=== PATIENT | female | born 1955 | race Caucasian/White ===

== ENCOUNTER 2016-10-01 00:45 | Emergency (ER) | payer OTHER | END 2016-10-01 01:36 | disposition home or self-care (01) | LOC: D.ER 00:45 | DX: S59.901A Unspecified injury of right elbow, initial encounter (principal); W19.XXXA Unspecified fall, initial encounter; Y93.89 Activity, other specified; Y92.89 Other specified places as the place of occurrence of the external cause; S89.92XA Unspecified injury of left lower leg, initial encounter; E11.9 Type 2 diabetes mellitus without complications; Z79.4 Long term (current) use of insulin ==

== ENCOUNTER → 2017-03-06 08:08 | Outpatient (CLI) | payer MEDICAID ==
--- NOTE | 2017-03-16 09:10 | EMG ---
PATIENT:HANS CASTELLANOS DATE OF SERVICE: 03/06/17 MEDICAL RECORD: [id number] DATE OF : 57 LOCATION: [facility] ADMISSION DATE: REFERRING PHYSICIAN: ALISTAIR MARCANO INTERPRETING PHYSICIAN: NEFTALY COTTO MD DATE OF SERVICE: 03/06/[address] Marcano as an outpatient. ELECTROMYOGRAPHIC DATA: Electromyographic examination is limited to both lower extremities. In the right lower extremity, right peroneal motor stimulation elicits a compound motor action potential with a distal latency of 4.4 milliseconds, peak amplitude of only 160 microvolts and calculated conduction velocity of 44 meters per second. Right tibial motor stimulation elicits a compound motor action potential with a distal latency of 6.0 milliseconds, peak amplitude of 300 microvolts and calculated conduction velocity of 27 meters per second. Antidromic right sural sensory stimulation elicits no reliable response. The right lower extremity H-reflex recording at gastrocsoleus is absent. In the left lower extremity, left peroneal motor stimulation elicits a compound motor action potential with a distal latency of 4.5 milliseconds, peak amplitude of only 400 microvolts and calculated conduction velocity of 26 meters per second. Left tibial motor stimulation elicits a compound motor action potential with a distal latency of 6.6 milliseconds, peak amplitude of only 500 microvolts and calculated conduction velocity of 44 meters per second. Antidromic left sural sensory stimulation elicits no reliable response. The left lower extremity H-reflex recording at gastrocsoleus is absent. Needle electrode examination is limited to both lower extremities as well. Muscles interrogated include the abductor hallucis, extensor digitorum brevis, abductor digiti quinti, tibialis anterior, medial gastrocnemius, vastus lateralis, semitendinosus, and gluteus jg. The patient does not tolerate the needle electrode examination well. Observation of quiet muscle as well as recruitment pattern is imperative as a consequence. Insertional activity is diminished in the intrinsic foot muscles bilaterally. No abnormal spontaneous activity is seen in all muscles interrogated. Motor unit potential morphology and the pattern of motor unit potential firing and recruitment demonstrates a decrease in the number of motor units firing at a variable rate consistent with decreased and variable patient effort. INTERPRETATION: Electromyographic examination of both lower extremities is indicative of a diffuse disorder of the lower motor neuron in both lower extremities, severe in degree electrically, consistent with the diagnosis of a sensory motor peripheral polyneuropathy. There is no electrical evidence of a superimposed lumbosacral radiculopathy or other lesion of the lower motor neuron in the lower extremities at this time. 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 TRANSINT:[id number] Voice Confirmation ID: [id number] DOCUMENT ID: [id number] ELECTROMYGRAM/NERVE CONDUCTION [id number] HANS CASTELLANOS DONALD P MD at 0910 CC: [id number] DICTATION DATE: 03/07/17726 CHAR PULLER: 03/07/17 0840 DEP CLI 03/06/17 [facility] [address] [place] [address]
== END | disposition home or self-care (01) ==
LOC: D.CN 08:08
DX: R29.898 Other symptoms and signs involving the musculoskeletal system (principal)

== ENCOUNTER → 2018-01-07 20:29 | Outpatient (CLI) | payer OTHER | END | disposition home or self-care (01) | LOC: D.MAMMO 12-22 13:00 | DX: Z12.31 Encounter for screening mammogram for malignant neoplasm of breast (principal) ==

== ENCOUNTER 2019-03-23 08:00 | Outpatient (CLI) | payer OTHER | END 2019-03-23 23:59 | disposition home or self-care (01) | LOC: D.MAMMO 08:00 | PROVIDERS: ATTEND Nurse Practitioner | DX: Z12.31 Encounter for screening mammogram for malignant neoplasm of breast (principal) ==